=== PATIENT | female | born 1970 ===

== ENCOUNTER → 2019-08-05 15:10 | Outpatient (BNVA) | payer OTHER, SELFPAY | PROVIDERS: Family Provider Family Medicine; Visit Provider Nurse Practitioner | DX: R31.9 Hematuria, unspecified (principal); N39.0 Urinary tract infection, site not specified | CPT/HCPCS: 81000 ==

== ENCOUNTER → 2020-01-07 13:37 | Outpatient (BNVA) | payer OTHER, SELFPAY | PROVIDERS: Family Provider Family Medicine; Visit Provider Nurse Practitioner Family | DX: N39.0 Urinary tract infection, site not specified (principal); R39.11 Hesitancy of micturition | CPT/HCPCS: 81000 ==

== ENCOUNTER 2020-05-13 17:32 | Outpatient (CLI) | payer OTHER, SELFPAY ==
[2020-05-13 21:12] LABS: Troponin T (5th) Once 6 ng/L (0-10)
== END 2020-05-13 17:33 | disposition home or self-care (01) ==
LOC: LAB 17:36
PROVIDERS: Visit Provider Family Medicine
DX: R07.89 Other chest pain (principal)
CPT/HCPCS: 84484

== ENCOUNTER 2020-08-13 15:23 | Outpatient (CLI) | payer OTHER, SELFPAY ==
--- NOTE | 2020-08-13 15:34 | USCV_ITS ---
Jose Daija Age: 49 Gender: F : 1970 Exam Date: 08/13/2020 15:57 Ordering Phys: Earl Vazquez MD Technologist: Gay Contreras Exam Location: [facility] [place] Indication: systolic murmur BP: / HR: 70 Rhythm: Sinus Technical Quality: Good MEASUREMENTS (Male / Female) Normal Values 2D ECHO LV Diastolic Diameter PLAX 3.4 cm 4.2 - 5.9 / 3.9 - 5.3 cm LV Systolic Diameter PLAX 2.1 cm LV Chamber Size 3.4 cm IVS Diastolic Thickness 0.9 cm 0.6 - 1.0 / 0.6 - 0.9 cm IVS Systolic Thickness 1.1 cm LVPW Diastolic Thickness 1.2 cm 0.6 - 1.0 / 0.6 - 0.9 cm LVPW Systolic Thickness 1.6 cm RV Chamber Size 1.9 cm LVOT Diameter 2.0 cm LV Ejection Fraction 2D Teich 69.9 % LV Ejection Fraction MOD 2C 77.6 % LV Ejection Fraction 2C AL 78.3 % LA Diameter 2.9 cm LA Width 2.1 cm LA Height 2.8 cm RA Width 2.6 cm RA Height 2.9 cm Aorta at Sinotubular Diameter 2.6 cm M-MODE LV Diastolic Diameter MM 3.3 cm 4.2 - 5.9 / 3.9 - 5.3 cm LV Systolic Diameter MM 1.8 cm LV Ejection Fraction MM Teich 78.8 % IVS Diastolic Thickness MM 1.0 cm 0.6 - 1.0 / 0.6 - 0.9 cm IVS Systolic Thickness MM 1.1 cm LVPW Diastolic Thickness MM 1.0 cm 0.6 - 1.0 / 0.6 - 0.9 cm LVPW Systolic Thickness MM 1.4 cm Aortic Annulus Diameter 3.1 cm LA Ao Ratio MM 0.9 MV E Point Septal Separation 0.2 cm DOPPLER MV Area PHT 3.9 cm squared Mitral E to A Ratio 1.3 MV E' Velocity 58.0 cm/s Mitral E to MV E' Ratio 7.9 Mitral E to LV E' Lateral Ratio 7.2 Mitral E to LV E' Septal Ratio 8.7 TR Peak Velocity 218.6 cm/s TR Peak Gradient 19.1 mmHg TR Mean Velocity 172.0 cm/s TR Mean Gradient 13.1 mmHg TR Velocity Time Integral 65.6 cm TV Peak E Velocity 51.0 cm/s Right Atrial Pressure 3.0 mmHg Pulmonary Artery Systolic Pressu 22.1 mmHg PV Peak Velocity 74.0 cm/s RV Acceleration Time 0.2 s RV Ejection Time 0.4 s RV AcT/ET 0.6 FINDINGS Left Ventricle Normal left ventricular size, systolic function and wall thickness, with no regional wall motion abnormalities. Normal left ventricular wall thickness. Normal diastolic filling pattern. Right Ventricle The right ventricle is normal in size and function. Right Atrium The right atrium is normal in size. Left Atrium The left atrium is normal in size. Mitral Valve Trace mitral valve regurgitation. Aortic Valve No gross abnormalities noted Tricuspid Valve Trace to mild tricuspid valve regurgitation. Pulmonic Valve No gross abnormalities noted Pericardium Normal pericardium without effusion. Aorta Normal ascending aorta dimension. CONCLUSIONS Normal left ventricular size, systolic function and wall thickness, with no regional wall motion abnormalities. Normal left ventricular wall thickness. Normal diastolic filling pattern. Trace mitral valve regurgitation. Trace to mild tricuspid valve regurgitation. There is no pericardial effusion. There are no intracardiac masses. No previous study is available for comparison. Dr Tuan Avilez MD FACC (Electronically Signed) Final Date: 14 August 2020 14:03 S
== END 2020-08-13 15:24 | disposition home or self-care (01) ==
LOC: RAD 15:27
PROVIDERS: Visit Provider Family Medicine
DX: R01.1 Cardiac murmur, unspecified (principal); I34.0 Nonrheumatic mitral (valve) insufficiency; I07.1 Rheumatic tricuspid insufficiency
CPT/HCPCS: 93306

== ENCOUNTER 2023-01-26 08:25 | Outpatient (CLI) | payer OTHER, SELFPAY ==
--- NOTE | 2023-01-26 08:31 | MM_ITS ---
WS: [id number] Bilateral screening 3D tomosynthesis digital mammogram, 01/26/2023 Clinical Data: SCREENING Comparison: 10/13/2016, 02/19/2013, 08/14/2012, 08/10/2012. Findings: The breast parenchymal pattern shows heterogeneous density. No spiculated masses or clustered calcifi cations are seen. There are no secondary signs of carcinoma. Impression: 1. Negative bilateral mammogram unchanged. 2. Recommend annual screening mammograms. MM/[place] [id number] BIRADS: 1-Negative FOLLOW UP: 1 Year Follow-up The CAD tool drawing checker was used.
== END 2023-01-26 08:26 | disposition home or self-care (01) ==
PROVIDERS: PCP Family Medicine; Visit Provider Family Medicine
DX: Z12.31 Encounter for screening mammogram for malignant neoplasm of breast (principal)
CPT/HCPCS: 77063; 77067